=== PATIENT | female | born 1970 | race Caucasian/White ===

== ENCOUNTER 2020-12-04 07:46 | Emergency (ER) | payer SELFPAY ==
[2020-12-04 08:23] LABS: HEMOGLOBIN 11.5 gm/dl (12.3-15.3); RED BLOOD COUNT 4.16 M/UL (4.00-5.10); WHITE BLOOD COUNT 6.9 K/UL (4.5-11.0)
[2020-12-04 08:47] LABS: BUN/CREATININE RATIO 31 (0-10)
[2020-12-04 08:49] LABS: ADENOVIRUS F 40/41 Not Detected (Negative); ASTROVIRUS Not Detected (Negative); CAMPYLOBACTER Not Detected (Negative); CLOSTRIDIUM DIFFICILE TOX A/B Not Detected (Negative); CRYPTOSPORIDIUM Not Detected (Negative); E.COLI 0157 Not Detected (Negative); ENTAMOEBA HISTOLYTICA Not Detected (Negative); ENTEROAGGREGATIVE E.COLI (EAEC Not Detected (Negative); ENTEROPATHOGENIC E.COLI (EPEC) Not Detected (Negative); ENTEROTOXIGENIC E.COLI (ETEC) Not Detected (Negative); GIARDIA LAMBLIA Not Detected (Negative); NOROVIRUS GI/GII Not Detected (Negative); PLESIOMONAS SHIGELLOIDES Not Detected (Negative); ROTOVIRUS A Not Detected (Negative); SALMONELLA Not Detected (Negative); SAPOVIRUS Not Detected (Negative); SHIG/ENTEROINVAS.ECOLI (EIEC) Not Detected (Negative); SHIGA-LIK TOX.PRO.E.COLI (STEC Not Detected (Negative); VIBRIO Not Detected (Negative); VIBRIO CHOLERAE Not Detected (Negative); YERSINIA ENTEROCOLITICA Not Detected (Negative)
[2020-12-04] MEDS ORDERED: ZOFRAN4 MG PO (11:02)
== END 2020-12-04 11:48 | disposition home or self-care (01) ==
LOC: ER1 07:46
PROVIDERS: Physician Assistant
DX: R19.7 Diarrhea, unspecified (principal); Z88.0 Allergy status to penicillin; Z88.1 Allergy status to other antibiotic agents; Z90.710 Acquired absence of both cervix and uterus
CPT/HCPCS: 80053; 81001; 82272; 83605; 83690; 85025; 87086; 87507; 99284; Q9967

== ENCOUNTER 2021-02-23 14:58 | Emergency (ER) | payer SELFPAY ==
[~2021-02-23 14:58] MED LIST: ZOFRAN4 MG PO
[2021-02-23] MEDS ORDERED: OMNICEF 300 MG300 MG PO (15:18)
[2021-02-23] MEDS ORDERED: TESSALON PERLE100 MG PO (15:18)
== END 2021-02-23 15:23 | disposition home or self-care (01) ==
LOC: ER1 14:58
DX: H66.91 Otitis media, unspecified, right ear (principal); J06.9 Acute upper respiratory infection, unspecified; J45.909 Unspecified asthma, uncomplicated; Z90.710 Acquired absence of both cervix and uterus; Z20.822 Contact with and (suspected) exposure to COVID-19
CPT/HCPCS: 87081; 87880; 99283; U0002

== ENCOUNTER 2021-07-12 04:01 | Emergency (ER) | payer SELFPAY ==
[~2021-07-12 04:01] MED LIST changes: +OMNICEF 300 MG300 MG PO; +TESSALON PERLE100 MG PO
[2021-07-12] MEDS ORDERED: FLONASE 0.05% N16 GM (05:46)
[2021-07-12] MEDS ORDERED: MUCINEX DM ER1 EAC1 PO (05:46)
== END 2021-07-12 06:37 | disposition home or self-care (01) ==
LOC: ER1 04:01
DX: J06.9 Acute upper respiratory infection, unspecified (principal); J45.909 Unspecified asthma, uncomplicated; Z20.822 Contact with and (suspected) exposure to COVID-19; Z85.05 Personal history of malignant neoplasm of liver; Z88.0 Allergy status to penicillin; Z88.2 Allergy status to sulfonamides
CPT/HCPCS: 0240U; 71045; 87081; 87880; 99283

== ENCOUNTER 2021-08-26 21:10 | Emergency (ER) | payer SELFPAY ==
[~2021-08-26 21:10] MED LIST changes: +FLONASE 0.05% N16 GM; +MUCINEX DM ER1 EAC1 PO
[2021-08-26 22:21] LABS: HEMOGLOBIN 11.8 gm/dl (12.3-15.3); RED BLOOD COUNT 4.34 M/UL (4.00-5.10)
[2021-08-26 22:37] LABS: BUN/CREATININE RATIO 18 (0-10)
[2021-08-27] MEDS ORDERED: BENTYL 20MG TAB20 MG PO (04:15)
[2021-08-27] MEDS ORDERED: ZOFRAN 4 MG TAB4 MG PO (04:15)
[2021-08-27] MEDS ORDERED: PROTONIX40 MG PO (04:15)
== END 2021-08-27 04:30 | disposition home or self-care (01) ==
LOC: ER1 21:10
PROVIDERS: Physician Assistant Medical
DX: K76.89 Other specified diseases of liver (principal); Z88.2 Allergy status to sulfonamides; Z88.1 Allergy status to other antibiotic agents; Z88.8 Allergy status to other drugs, medicaments and biological substances
CPT/HCPCS: 80053; 81001; 83690; 85025; 99284; Q9967

== ENCOUNTER 2021-09-09 13:39 | Emergency (ER) | payer SELFPAY ==
[~2021-09-09 13:39] MED LIST changes: +BENTYL 20MG TAB20 MG PO; +PROTONIX40 MG PO; +ZOFRAN 4 MG TAB4 MG PO
[2021-09-09 16:55] LABS: HEMOGLOBIN 12.6 gm/dl (12.3-15.3); RED BLOOD COUNT 4.62 M/UL (4.00-5.10); WHITE BLOOD COUNT 9.4 K/UL (4.5-11.0)
[2021-09-09 17:17] LABS: BUN/CREATININE RATIO 21 (0-10)
== END 2021-09-09 18:00 | disposition home or self-care (01) ==
LOC: ER1 13:39
PROVIDERS: Physician Assistant
DX: R10.31 Right lower quadrant pain (principal)
CPT/HCPCS: 80053; 81001; 83690; 85025; 96374; 96375; 99284; J1885; J2270; J2405

== ENCOUNTER 2021-09-17 12:11 | Emergency (ER) | payer OTHER ==
[2021-09-17 14:07] LABS: HEMOGLOBIN 12.4 gm/dl (12.3-15.3); RED BLOOD COUNT 4.49 M/UL (4.00-5.10); WHITE BLOOD COUNT 7.8 K/UL (4.5-11.0)
[2021-09-17 14:43] LABS: BUN/CREATININE RATIO 18 (0-10)
[2021-09-17] MEDS ORDERED: ZOFRAN 4 MG TAB4 MG PO (15:09)
== END 2021-09-17 15:15 | disposition home or self-care (01) ==
LOC: ER1 12:11
PROVIDERS: Physician Assistant
DX: R10.9 Unspecified abdominal pain (principal); R11.2 Nausea with vomiting, unspecified; R10.811 Right upper quadrant abdominal tenderness; R10.813 Right lower quadrant abdominal tenderness; Z88.0 Allergy status to penicillin; Z88.1 Allergy status to other antibiotic agents; Z88.2 Allergy status to sulfonamides; Z88.5 Allergy status to narcotic agent
CPT/HCPCS: 80053; 81001; 85025; 99284; J1885

== ENCOUNTER 2021-10-11 16:17 | Emergency (ER) | payer OTHER ==
[2021-10-11 17:09] LABS: HEMOGLOBIN 11.6 gm/dl (12.3-15.3); RED BLOOD COUNT 4.16 M/UL (4.00-5.10); WHITE BLOOD COUNT 7.5 K/UL (4.5-11.0)
[2021-10-11 17:34] LABS: BUN/CREATININE RATIO 17 (0-10)
== END 2021-10-11 21:45 | disposition home or self-care (01) ==
LOC: ER1 16:17
DX: R41.3 Other amnesia (principal); Z88.8 Allergy status to other drugs, medicaments and biological substances; Z88.5 Allergy status to narcotic agent; Z88.2 Allergy status to sulfonamides; Z88.0 Allergy status to penicillin; Z90.710 Acquired absence of both cervix and uterus
CPT/HCPCS: 70450; 80053; 82550; 82553; 84484; 85025; 93005; 99284

== ENCOUNTER → 2021-11-15 | Outpatient (CLI) | payer OTHER | LOC: LAB 09:56 | DX: D3A.00 Benign carcinoid tumor of unspecified site (principal); Z20.822 Contact with and (suspected) exposure to COVID-19 | CPT/HCPCS: U0002 ==

== ENCOUNTER → 2021-11-15 | Outpatient (CLI) | payer OTHER | LOC: KOH-I 15:15 | DX: R55 Syncope and collapse (principal); R56.9 Unspecified convulsions | CPT/HCPCS: 70551 ==

== ENCOUNTER 2021-12-22 11:42 | Emergency (ER) | payer OTHER ==
[2021-12-22 13:10] LABS: HEMOGLOBIN 11.9 gm/dl (12.3-15.3); RED BLOOD COUNT 4.35 M/UL (4.00-5.10); WHITE BLOOD COUNT 6.5 K/UL (4.5-11.0)
[2021-12-22 13:28] LABS: BUN/CREATININE RATIO 15 (0-10)
[2021-12-22] MEDS ORDERED: IBUPROFEN600 MG PO (15:51)
[2021-12-22] MEDS ORDERED: ONDANSETRON ODT4 MG PO (15:51)
== END 2021-12-22 16:07 | disposition home or self-care (01) ==
LOC: ER1 11:42
PROVIDERS: Nurse Practitioner
DX: R51.9 Headache, unspecified (principal); Z90.49 Acquired absence of other specified parts of digestive tract; Z90.710 Acquired absence of both cervix and uterus; Z88.5 Allergy status to narcotic agent; Z88.0 Allergy status to penicillin; Z88.1 Allergy status to other antibiotic agents; Z88.8 Allergy status to other drugs, medicaments and biological substances; Z20.822 Contact with and (suspected) exposure to COVID-19
CPT/HCPCS: 0240U; 80053; 81001; 85025; 87086; 96374; 96375; 99284; J1885; J2405